=== PATIENT | female | born 2000 | race Hispanic/Latino ===

== ENCOUNTER → 2020-06-03 09:57 | Outpatient (CLI) | payer BC, SELFPAY ==
--- NOTE | ~2020-06-03 | US_ITS ---
EXAMINATION: US abdomen limited DATE: 06/03/2020 10:14 INDICATION: Right upper quadrant pain TECHNIQUE: Multiple grayscale and Doppler ultrasound images of the abdomen were obtained. COMPARISON: None available FINDINGS: The head, body, and tail of the pancreas are normal. The liver is normal with normal echoge nicity and echotexture. No surface nodularity. Normal hepatopetal flow in the main portal vein. The g allbladder is normal with no abnormal wall thickening, pericholecystic fluid or stones. The normal co mmon bile duct measures 4 mm. There was no sonographic Radford sign. IMPRESSION: 1. Normal sonographic study of the gallbladder. Reviewed, dictated and finalized at location A.
== END ==
PROVIDERS: PCP Family Medicine; Visit Provider Family Medicine
DX: R19.7 Diarrhea, unspecified (principal); R11.0 Nausea
CPT/HCPCS: 76705

== ENCOUNTER → 2023-09-23 15:17 | Outpatient (CLI) | payer BC, SELFPAY ==
--- NOTE | ~2023-09-23 | XR_ITS ---
EXAM: XR lumbar spine min 4V DATE: 09/23/2023 15:35 HISTORY: worsening chronic low back pain . COMPARISON: None available. FINDINGS: 5 nonrib-bearing lumbar-type vertebral bodies. Pedicles intact. No pars defect. Normal debbi tebral body alignment. Vertebral body heights preserved. Mild disc space narrowing at L4-5 and L5-S1. Normal facets and posterior elements. No fracture or dislocation. Pelvic phleboliths. IMPRESSION: Mild degenerative disc disease at L4-5 and L5-S1. Reviewed, dictated and finalized at location K. NG MACHINE FEEDER
== END ==
PROVIDERS: PCP Family Medicine; Visit Provider Family Medicine
DX: M51.36 Other intervertebral disc degeneration, lumbar region (principal); M51.37 Other intervertebral disc degeneration, lumbosacral region
CPT/HCPCS: 72110

== ENCOUNTER 2023-10-28 14:30 | Outpatient (RCR) | payer BC, SELFPAY ==
--- NOTE | 2023-09-29 16:52 | OPREHPOC ---
Outpatient Therapy Plan of Care This is a Multidisciplinary Plan of Care that may contain components documented by all disciplines (PT, OT, and ST.) PT Problem 1 PT Problem #1 Knowledge Deficit PT Goal 1 Goal Pt to be IND with issued HEP Target Visit 8 PT Problem 2 PT Problem #2 Pain PT Goal 1 Goal Pt to report low back pain no greater than 3/10 in the last week. Target Visit 8 PT Goal 2 Goal Pt to report 75% improvement in overall symptoms Target Visit 8 PT Problem 3 PT Problem #3 Impaired Range of Motion PT Goal 1 Goal Pt to demonstrate active lumbar ROM without an increase in pain PT Problem 4 PT Problem #4 Impaired Strength PT Goal 1 Goal Pt to demonstrate hip abduction strength grossly 4 /5. Target Visit 8 PT Goal 2 Goal Pt to demonstrate a functional lift and carry with 20lb without an increase in pain Target Visit 8 PT Problem 5 PT Problem #5 Pain PT Goal 1 Goal Pt to be able to stand for a shift without an increase in pain greater than 3/10. Target Visit 8
--- NOTE | 2023-09-29 16:53 | PTOPEVAL1 ---
Assessment and note entered by Nikita Godwin, PT, DPT Evaluation Information Assessment Status Evaluation Diagnosis low back pain Subjective Information Pt is accompanied to evaluation today by her mother. Pt states she has back pain all the time from DDD, she states it hurts sitting, standing, and walking. 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 She states she has tried Tylenol without much relief. She has been using CBD and THC to treat her pain, she did this today and said she is not in pain at this moment. Pts mother asks for recommendations on THC usage. Reported Pain Level Pain Score 0: Self Report Assessment PT Clinical Summary Betsy presents to therapy today for her initial evaluation with a diagnosis of low back pain. Today she demonstrates pelvic asymmetric in supine , piriformis tightness, hip weakness, gait deviations, and poor posture. She reports limited tolerance to prolonged positions of sitting and standing. She stands with an anterior pelvic tilt and increased lumbar lordosis. Skilled therapy services are indicated to address the deficits noted above, to manage pain, to improve body awareness and movement mechanics, and to return to PLOF. Plan of Care Interventions Electrical Stimulation,Gait Training,Hot Pack/Cold Pack,Manual Therapy,Neuro Re-education,Patient/ Caregiver Educati,Therapeutic Activities, Therapeutic Exercise PT Services Indicated Yes Treatment Frequency and 2x/wk for 8 visits Duration These treatments will address the objective and functional deficits as defined above. The patient will be advanced safely and appropriately in order for the patient to progress towards his/her prior level of function. Additional exercises will be introduced and as well as a comprehensive home exercise program upon discharge, if needed, ?to ensure carryover of functional gains achieved in the clinic. This treatment plan has been reviewed and agreement upon by the patient.
--- NOTE | 2023-10-06 11:01 | PCPTNOTE ---
Unable to see patient this date due to not having authorization.
--- NOTE | 2023-10-26 10:29 | PCPTNOTE ---
Patient did not show up for scheduled appointment this date. Called and spoke with pt, she has been rescheduled.
--- NOTE | 2023-10-28 16:08 | PTOPDC ---
Assessment and note entered by Nikita Godwin, PT, DPT Evaluation Information Assessment Status Discharge Diagnosis low back pain Subjective Information Pt states her back pain is doing a lot better than when she started. She states she rarely gets back pain and it is isolated to times where she has to do heavy lifting. Pt states she can stand through an entire work day and has not had to leave early since starting therapy. Pt reports 95% improvement in overall symptoms. Reported Pain Level Pain Score 2: Self Report Assessment PT Clinical Summary Betsy presents to therapy today for her progress report following 7 visits of skilled therapy to treat her diagnosis of low back pain. Today she demonstrates equal pelvic alignment, improve body awareness, and no substitutions with lifting mechanics. Her Oswestry score progressed from 48% disability to 4% disability. She has met all of her therapy goals and no longer requires skilled services, she will be discharged at this time. Plan of Care PT Services Indicated No
== END 2023-10-29 08:06 | disposition home or self-care (01) ==
LOC: ANHGOSHPT 14:30
PROVIDERS: PCP Family Medicine; Visit Provider Family Medicine
DX: S39.012D Strain of muscle, fascia and tendon of lower back, subsequent encounter (principal)
CPT/HCPCS: 97110; 97140; 97161; 97530; 99199

== ENCOUNTER 2023-11-30 11:41 | Emergency (ER) | payer BC, SELFPAY ==
--- NOTE | ~2023-11-30 | CT_ITS ---
EXAMINATION: CTA chest PE protocol DATE: 11/30/2023 15:10 INDICATION: Shortness of breath TECHNIQUE: Computed tomography angiography (CTA) of the chest was performed with 100 mL Omnipaque-350 intravenous contrast timed to evaluate the pulmonary arteries. Coronal maximum intensity projection 3D-reconstructions were created by the technologist. The dose-length product (DLP) was 357.15 mGy-cm. Automated exposure control and iterative reconstruction technique were employed. COMPARISON: None. FINDINGS: The pulmonary arteries are well-opacified. No pulmonary embolism is identified. The lungs a re free of acute opacities. No pleural effusion or pneumothorax. The heart size is normal. There is m ild bilateral hilar lymphadenopathy, likely reactive. IMPRESSION: 1. No pulmonary embolism or acute cardiopulmonary abnormality. Reviewed, dictated and finalized at location L. THALENE OPERATOR
[2023-11-30 11:56] VITALS: BP 134/72; PULSE 85; RESP 20; TEMP 36.6; O2SAT 100
--- NOTE | 2023-11-30 12:49 | ED.SOB ---
HPI - SOB/Dyspnea General Chief Complaint: Shortness of Breath/Dyspnea <Yaneth Cunningham PA-C - Last Filed: 11/30/23 12:56> Stated Complaint: SOB on exertion, COVID + Wednesday <Yaneth Cunningham PA-C - Last Filed: 11/30/23 12:56> Time Seen by Provider: 11/30/23 12:49 <Yaneth Cunningham PA-C - Last Filed: 11/30/23 12:56> Focused HPI: Patient is a 23 y/o female who presents to the ED with c/o SOB. Patient reports she was diagnosed with COVID 19 on Wednesday. She is fully vaccinated for COVID. States she has had progressively worsening shortness of breath since her diagnosis. Worse with exertion and speaking in full sentences. Became worse this morning, which prompted her presentation. Also c/o chest pain with inspiration and coughing. Denies N/V, abdominal pain, fevers, BLE pain or swelling, Hx of asthma/lung disease/blood clots. GENERAL: Well-appearing, well-nourished, and in no acute distress. HEAD: Normocephalic, atraumatic. CHEST: Clear to auscultation. ?No respiratory distress. HEART: Regular rate and rhythm.? NEURO: ?Alert and oriented x3. Patient screened in triage and initial orders placed.? ?Additional care and disposition to be based upon?diagnostic testing and treatment. <Yaneth Cunningham PA-C - Last Filed: 11/30/23 12:56> Source: patient <Yaneth Cunningham PA-C - Last Filed: 11/30/23 12:56> Mode of arrival: ambulatory <Yaneth Cunningham PA-C - Last Filed: 11/30/23 12:56> Limitations: no limitations <Yaneth Cunningham PA-C - Last Filed: 11/30/23 12:56> History of Present Illness HPI Narrative: Agree with focused HPI <Claus Rome MD - Last Filed: 11/30/23 19:35> Related Data Home Medications: Home Medications Medication Instructions Recorded Confirmed etonogestrel 68 mg subdermal 1 implant subdermal ONCE 10/12/19 09/22/23 implant (Nexplanon) aripiprazole 15 mg tablet 15 mg PO DAILY 05/01/21 09/22/23 <Yaneth Cunningham PA-C - Last Filed: 11/30/23 12:56> Allergies/Adverse Reactions: Allergies Allergy/AdvReac Type Severity Reaction Status Date / Time No Known Allergies Allergy Verified 10/13/23 15:25 <Yaneth Cunningham PA-C - Last Filed: 11/30/23 12:56> Review of Systems Review of Systems: All systems reviewed & are unremarkable except as noted in HPI and below <Claus Rome MD - Last Filed: 11/30/23 19:35> PMFSH Past Medical History Medical History: Medical History (Updated 11/30/23 @ 15:42 by Claus Rome MD) Gamekeeper's thumb of left hand <Yaneth Cunningham PA-C - Last Filed: 11/30/23 12:56> Social History Social History: Social History (Updated 10/13/23 @ 15:26 by Rosalba Kauffman MA) Smoking status: Current some day smoker (marijuana) Smoking end date: 10/04/16 Additional smoking assessment comments: not cigarettes just marijuana Alcohol intake: never Substance use: current Substance use type: marijuana Other substance usage details: smokes Last use: yesterday Do You Feel Safe in your Home?: Yes Lack of Transportation: No Lack of Food: Never True Current Housing: I Have Housing Concerned About Future Housing: No Difficulty Paying Gas/Electric Bills: No Difficulty Paying for Meds: No Currently Unemployed: No Education: High School Diploma/GED Difficulty w/ Childcare or Family Care: No Living arrangements: with family <KAMARI Cat Last Filed: 11/30/23 12:56> Exam Narrative: APPEARANCE: Well appearing, no pain, no distress, well-nourished. HEAD: normocephalic, atraumatic. EYES: PERRLA/EOMI, conjunctivae clear. NOSE: Normal no drainage NECK: Supple. No adenopathy, no masses. RESPIRATORY: Airway patent, respirations nonlabored. Clear to auscultation bilaterally, no rales, rhonchi, wheezing. CARDIOVASCULAR: Regular rate and rhythm without murmurs rubs or gallops. ABDOMINAL: Soft, nontender, nondisten
--- NOTE | 2023-11-30 12:51 | ECG_ITS ---
Measurements Intervals [place] Rate: 78 P: 56 NV: 148 QRS: 33 QRSD: 73 T: 11 QT: 334 QTc: 382 Interpretive Statements SINUS RHYTHM NORMAL ELECTROCARDIOGRAM NO PREVIOUS ECG AVAILABLE FOR COMPARISON Electronically Signed On 11-30-2023 15:38:46 SHORT ORDER COOK by Aubrey Estrada M.D.
[2023-11-30 12:59] VITALS: BP 121/77; PULSE 79; RESP 18; O2SAT 99
[2023-11-30 13:10] LABS: Basophils Absolute Auto 0.1 K/mm3 (0.0-0.1); Basophils Percent Auto 0.9 % (0.2-1.2); Eosinophils Percent Auto 0.6 % (0-4.4); Hematocrit 48.2 % (37.0-47.0); Immature Granulocyte Absolute 0.02 K/mm3 (0.00-0.031); Immature Granulocyte Percent A 0.3 % (0-0.5); Lymphocytes Absolute Auto 2.27 K/mm3 (0.9-3.2); Mean Corpuscular HGB Conc 33.2 g/dl (32-36); Mean Corpuscular Hemoglobin 28.8 pg (26-34); Mean Corpuscular Volume 86.8 fl (80-100); Monocytes Absolute Auto 0.5 K/mm3 (0.1-0.6); Monocytes Percent Auto 7.8 % (2.6-8.5); Neutrophils Percent Auto 57.4 % (45.5-73.1); Platelet Count Result 324 k/mm3 (150-375); Red Blood Count 5.55 M/mm3 (4.2-5.4); Red Cell Distribution Width 12.5 % (11.5-14.5); White Blood Count 6.9 K/mm3 (4.5-10.0)
[2023-11-30 13:21] LABS: INR 0.9; Prothrombin Time 12.9 Seconds (11.1-14.7)
[2023-11-30 13:22] LABS: Partial Thromboplastin Time 31.1 SECONDS (22.3-36.8)
[2023-11-30 14:53] LABS: Alanine Aminotransferase 27 U/L (6-35); Albumin Level 4.4 g/dL (3.5-5.1); Alkaline Phosphatase 76 U/L (38-126); Anion Gap 5 mmol/L (8-16); Aspartate Amino Transferase 26 U/L (14-36); Bilirubin,Total 0.5 mg/dL (0.2-1.3); Blood Urea Nitrogen 6 mg/dL (7-17); Calcium 9.7 mg/dL (8.4-10.2); Carbon Dioxide 29 mmol/L (22-30); Chloride 105 mmol/L (98-107); Estimated Glomerular Filt Rate > 60; Glucose 98 mg/dL (65-110); Potassium 4.4 mmol/L (3.4-5.0); Sodium 139 mmol/L (137-145)
[2023-11-30 14:58] VITALS: BP 121/74; PULSE 79; RESP 20; TEMP 36.8; O2SAT 100
[2023-11-30 14:59] VITALS: O2SAT 100
[2023-11-30 15:04] LABS: Troponin I < 0.012 ng/mL (0.000-0.034)
[2023-11-30 15:59] VITALS: BP 117/48; PULSE 82; RESP 20; TEMP 36.8; O2SAT 99
== END 2023-11-30 16:02 | disposition home or self-care (01) ==
PROVIDERS: Physician Assistant; Emergency Provider Emergency Medicine; PCP Family Medicine
DX: U07.1 COVID-19 (principal)
CPT/HCPCS: 36415; 71275; 80053; 81025; 84484; 85025; 85610; 85730; 93005; 99284; Q9967